=== PATIENT | female | born 1935 | race Asian ===

== ENCOUNTER → 2016-09-24 | Outpatient (CLI) | payer MEDICAID | LOC: FIMAGING 11:02 | PROVIDERS: ATTEND Family Medicine | DX: M48.56XA Collapsed vertebra, not elsewhere classified, lumbar region, initial encounter for fracture (principal); M48.54XD Collapsed vertebra, not elsewhere classified, thoracic region, subsequent encounter for fracture with routine healing; M51.34 Other intervertebral disc degeneration, thoracic region; M51.36 Other intervertebral disc degeneration, lumbar region; R26.89 Other abnormalities of gait and mobility ==

== ENCOUNTER → 2016-10-29 | Outpatient (CLI) | payer MEDICAID | LOC: FIMAGING 08:17 | PROVIDERS: ATTEND Family Medicine | DX: M54.9 Dorsalgia, unspecified (principal); M48.06 Spinal stenosis, lumbar region; M51.26 Other intervertebral disc displacement, lumbar region; M51.36 Other intervertebral disc degeneration, lumbar region; S32.020D Wedge compression fracture of second lumbar vertebra, subsequent encounter for fracture with routine healing; S22.080A Wedge compression fracture of T11-T12 vertebra, initial encounter for closed fracture; E11.9 Type 2 diabetes mellitus without complications; Z79.899 Other long term (current) drug therapy ==

== ENCOUNTER → 2017-02-16 | Outpatient (CLI) | payer MEDICAID | LOC: FIMAGING 14:15 | PROVIDERS: ATTEND Family Medicine | DX: Z13.820 Encounter for screening for osteoporosis (principal); S32.020A Wedge compression fracture of second lumbar vertebra, initial encounter for closed fracture; M54.9 Dorsalgia, unspecified ==

== ENCOUNTER → 2018-02-18 | Outpatient (CLI) | payer MEDICAID | LOC: FIMAGING 13:46 | PROVIDERS: ATTEND Family Medicine | DX: I83.811 Varicose veins of right lower extremity with pain (principal) ==

== ENCOUNTER → 2018-06-30 | Outpatient (CLI) | payer OTHER, MEDICAID | LOC: FIMAGING 11:32 | PROVIDERS: ATTEND Family Medicine | DX: M25.562 Pain in left knee (principal) ==

== ENCOUNTER → 2018-08-10 | Outpatient (CLI) | payer OTHER, MEDICAID | LOC: FIMAGING 18:44 | PROVIDERS: ATTEND Family Medicine | DX: S72.432A Displaced fracture of medial condyle of left femur, initial encounter for closed fracture (principal); M23.222 Derangement of posterior horn of medial meniscus due to old tear or injury, left knee; M24.10 Other articular cartilage disorders, unspecified site; M76.52 Patellar tendinitis, left knee; M25.462 Effusion, left knee ==